=== PATIENT | male | born 1980 | race Caucasian/White ===

== ENCOUNTER 2016-10-16 10:30 | Emergency (ER) | payer SELFPAY ==
[~2016-10-16] VITALS: Ht 160 cm; Wt 61.4 kg
[2016-10-16 10:30] VITALS: BP 112/82
[2016-10-16] MEDS ORDERED: OMEP20CA10 PO (10:38)
[2016-10-16] MEDS ORDERED: PANTOPRAZOLE SODIUM 40 MG DR TABLET PO ONE (11:30)
[2016-10-16] MEDS ORDERED: DONNATAL/LIDOCAINE/MAALOX 55 ML BOTTLE PO ONE (11:30)
== END 2016-10-16 12:27 | disposition home or self-care (01) ==
LOC: EMS 10:32
DX: K29.70 Gastritis, unspecified, without bleeding (principal); K21.9 Gastro-esophageal reflux disease without esophagitis
CPT/HCPCS: 99283; Z7610